=== PATIENT | female | born 1970 | race American Indian/Alaskan Native ===

== ENCOUNTER 2021-06-27 14:39 | Emergency (ER) | payer OTHER ==
[2021-06-27 15:26] VITALS: BP 133/90
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
== END 2021-06-27 16:35 ==
LOC: ED 14:39
DX: S00.03XA Contusion of scalp, initial encounter (principal); Y04.8XXA Assault by other bodily force, initial encounter; Y93.89 Activity, other specified; Y92.89 Other specified places as the place of occurrence of the external cause; Y99.8 Other external cause status
CPT/HCPCS: 70450; 72125; 99283

== ENCOUNTER 2021-06-27 14:54 | Emergency (ER) | payer SELFPAY | END 2021-06-27 18:00 | LOC: ED 14:54 | DX: Z00.00 Encounter for general adult medical examination without abnormal findings (principal); Z53.21 Procedure and treatment not carried out due to patient leaving prior to being seen by health care provider ==